=== PATIENT | male | born 1965 | race Caucasian/White ===

== ENCOUNTER 2017-04-27 09:56 | Day surgery (SDC) | payer OTHER, MEDICAID ==
[2017-04-27] MEDS ORDERED: D5 LR 1000 ML 1,000 ML IV ONE (10:04)
[2017-04-27] MEDS ORDERED: DIPRIVAN VIAL 20 ML ONE (11:37)
[2017-04-27 12:14] VITALS: BP 115/70
== END 2017-04-27 12:16 | disposition home or self-care (01) ==
LOC: SURG1 09:56
PROVIDERS: ATTEND Internal Medicine Gastroenterology
PROC: 0DB68ZX Excision of Stomach, Via Natural or Artificial Opening Endoscopic, Diagnostic (ICD-10-PCS; principal; 2017-04-27 12:45)
PROC: 0DJ08ZZ Inspection of Upper Intestinal Tract, Via Natural or Artificial Opening Endoscopic (ICD-10-PCS; principal; 2017-04-27 12:45)
PROC: 0DB88ZX Excision of Small Intestine, Via Natural or Artificial Opening Endoscopic, Diagnostic (ICD-10-PCS; principal; 2017-04-27 12:45)
DX: R10.13 Epigastric pain (principal); R11.0 Nausea; K21.9 Gastro-esophageal reflux disease without esophagitis; K29.60 Other gastritis without bleeding; K20.8 Other esophagitis
CPT/HCPCS: A4217; J3490; J7120

== ENCOUNTER 2017-12-21 11:02 | Day surgery (SDC) | payer OTHER, MEDICAID ==
[2017-12-21] MEDS ORDERED: D5 LR 1000 ML 1,000 ML IV ONE (11:15)
[2017-12-21] MEDS ORDERED: DIPRIVAN VIAL 20 ML ONE (12:34)
[2017-12-21 14:25] VITALS: BP 118/73
== END 2017-12-21 13:15 | disposition home or self-care (01) | DRG 395 ==
LOC: SURG1 11:02
PROVIDERS: ATTEND Internal Medicine Gastroenterology
PROC: 0DBP8ZX Excision of Rectum, Via Natural or Artificial Opening Endoscopic, Diagnostic (ICD-10-PCS; principal; 2017-12-21 14:30)
DX: K62.7 Radiation proctitis (principal); K64.0 First degree hemorrhoids; Z85.048 Personal history of other malignant neoplasm of rectum, rectosigmoid junction, and anus; Z92.3 Personal history of irradiation
CPT/HCPCS: A4217; J3490; J7120

== ENCOUNTER 2018-02-15 14:11 | Emergency (ER) | payer OTHER, MEDICAID ==
[2018-02-15 14:23] VITALS: BMI 19.8
--- NOTE | 2018-02-15 14:49 | DR.CP ---
HPI - Time Seen Time seen: 14:38 - PCP Primary Care Physician: RANDY MILTON - Complaint Chief Complaint Doctor Comments: Intermittent chest pain x 3 months. Current episode awakened him from sleep this a.m. HE describes this as a sharp/ stabbing pain without radiation. There is no associated dyspnea, nausea or vomitting. Chief Complaint:: PT C/O HAVING CHEST WALL PAIN , SPASMS AND HE FEELS LIKE HIS HEART IS RACING AND IT HAS BEEN GOING ON FOR 3 MONTHS AND HE TO FLU WITH BELLE, AND FEREE ON MONDAY , PT APPEARS TO BE PALE. Self Treatment fo Chief Complaint: NONE - Reviewed Nurses Notes Review: Yes - Source History Provided: Patient - Mode of Arrival Mode of Arrival: Ambulatory - Timing Onset of Chief Complaint: 12/14/17 - Location Chest Pain Radiation Location: Left Jaw - Associated Signs and Symptoms Associated Signs and Symptoms: None PMH - PMH Past Medical History: Yes Past Medical History: Anxiety, Diabetes, Dyslipidemia, Hypertension Past Medical History Comment: COLON CANCER, Past Surgical History: Yes Surgical History: Ortho Surgery Past Surgical History Comment: PLATE AND ADDIE IN BACK, - Family History History of Family Medical Conditions: Yes Family Medical History: Diabetes Mellitus, Cancer, [place], Hypertension - Social History Does patient currently use any type of tobacco product: No Have you used tobacco products in the last 12 months: No Type of Tobacco Use: None Does any household member use tobacco: No Alcohol Use: None Do you use any recreational Drugs:: No Lives With: Spouse Lives Where: Home - infectious screening In the last 2 months have you had wt loss of >10#?: NO Have you had fever, night sweats or hemotysis?: No Have you traveled outside the country in the last 6 months?: No Isolation: Standard ROS - Review of Systems Constitutional: No Symptoms Reported Eyes: No Symptoms Reported ENTM: No Symptoms Reported Respiratoy: No Symptoms Reported Cardiovascular: Chest Pain Gastrointestinal/Abdominal: No Symptoms Reported Genitourinary: No Symptoms Reported Neurological: No Symptoms Reported Musculoskeletal: No Symptoms Reported Integumentary: No Symptoms Reported Hematologic/Lymphatic: No Symptoms Reported Endocrine: No Symptoms Reported Psychiatric: No Symptoms Reported All Other Systems: Reviewed and Negative PE - Vitals Vitals: Temperature 96.6 F Pulse Rate [Left Brachial] 80 Pulse Rate 103 Respiratory Rate 18 Blood Pressure [Left Arm] 122/71 Blood Pressure 149/80 O2 Sat by Pulse Oximetry 100 - General Limitations: No Limitations General Appearance: Alert, In No Apparent Distress - Head Head Exam: Normal Inspection - Eyes Eye exam: Normal Appearance - ENT ENT Exam: Normal Exam - Chest Chest Inspection: Normal Inspection - Respiratory Respiratory Exam: Normal Lung Sounds Bilat - Cardiovascular Cardiovascular Exam: Regular Rate, Normal Rhythm, Normal Heart Sounds, +S1, +S2 - Abdominal Exam Abdominal Exam: Normal Inspection, Normal Bowel Sounds, Soft - Extremities Extremities Exam: Normal Inspection - Back Back Exam: Normal Inspection - Neurologic Neurological Exam: Alert, Oriented X3 - Psychiatric Psychiatric Exam: Normal Affect, Normal Mood - Skin Skin Exam: Warm, Dry, Intact, Normal Color Course - Reevaluation 1st: Improved 2nd: Improved ROR - Labs Reviewed Result Diagrams: 02/15/18 15:01 02/15/18 15:01 Laboratory: WBC 3.4 X10^3/uL (3.6-10.0) L 02/15/18 15:01 RBC 2.76 X10^6/uL (4.7-6.0) L 02/15/18 15:01 Hgb 11.8 g/dL (13.5-18.0) L 02/15/18 15:01 Hct 32.6 % (42.0-54.0) L 02/15/18 15:01 MCV 118.4 fL (80.0-100.0) H 02/15/18 15:01 MCH 42.9 pg (27.0-34.0) H 02/15/18 15:01 MCHC 36.2 g/dL (33.0-35.0) H 02/15/18 15:01 RDW 13.5 % (11.6-16.5) 02/15/18 15:01 Plt Count 176 X10^3/uL (150.0-450.0) 02/15/18 15:01 Plt Count Comment Adequate (ADEQUATE) 02/15/18 15:01 MPV 8.5 fL (7.4-11.0) 02/15/18 15:01 Neut % (Auto) 52.6 % (42.0-75.0) 02/15/18 15:01 Lymph % (Auto) 29.6 % (21.0-51.0) 02/15/18 15:01 Mclennan % (Auto) 14.5 % (0.0-13.0) H 02/15/18 15:01 Eos % (Auto) 2.8 % (0.9-2.9) 02/15/18 15:01 Baso % (Auto) 0.5 % (0.2-1.0) 02/15/18 15:01 Neut # (Auto) 1.8 x10^3/uL (2.2-4.8) L 02/15/18 15:01 Lymph # (Auto) 1.0 X10^3/uL (1.3-2.9) L 02/15/18 15:01 [place]clennan # (Auto) 0.5 x10^3/uL (0.3-0.8) 02/15/18 15:01 Eos # (Auto) 0.1 x10^3/uL (0.0-0.2) 02/15/18 15:01 Baso # (Auto) 0.0 X10^3/uL (0.0-0.1) 02/15/18 15:01 Absolute Nucleated RBC 0.1 /100WBC 02/15/18 15:01 Plt Morphology Comment Normal (NORMAL) 02/15/18 15:01 RBC Morphology Normal (NORMAL) 02/15/18 15:01 Macrocytosis 2+ A 02/15/18 15:01 INR Target Range - 02/15/18 15:01 INR 1.15 (0.8-1.3) 02/15/18 15:01 APTT 28.9 SECONDS (22.9-36.5) 02/15/18 15:01 PTT Comment - 02/15/18 15:01 Sodium 135 mmol/L (136-145) L 02/15/18 15:01 Corrected Sodium 139 mmol/L (136-145) 02/15/18 15:01 Potassium 3.9 mmol/L (3.5-5.1) 02/15/18 15:01 Chloride 99 mmol/L (98-107) 02/15/18 15:01 Carbon Dioxide 24.1 mmol/L (21-32) 02/15/18 15:01 BUN 17 mg/dL (7-18) 02/15/18 15:01 Creatinine 1.19 mg/dL (0.70-1.30) 02/15/18 15:01 Est GFR (MDRD) Af Amer > 60 (>60) 02/15/18 15:01 Est GFR (MDRD) Non-Af > 60 (>60) 02/15/18 15:01 Glucose 253 mg/dL (65-99) H 02/15/18 15:01 Calcium 8.0 mg/dL (8.5-10.1) L 02/15/18 15:01 Corrected Calcium TNP 02/15/18 15:01 Magnesium 1.9 mg/dL (1.7-2.9) 02/15/18 15:01 Total Bilirubin 0.40 mg/dL (0.2-1.0) 02/15/18 15:01 AST 40 Units/L (15-37) H 02/15/18 15:01 ALT 40 Units/L (12-78) 02/15/18 15:01 Alkaline Phosphatase 68 Units/L (46-116) 02/15/18 15:01 Creatine Kinase 684 Units/L (39-308) H 02/15/18 15:01 CK-MB (CK-2) 6.9 ng/mL (0-4.0) H* 02/15/18 15:01 CK/CKMB % Calc 1.0 % (<4) 02/15/18 15:01 Troponin I < 0.02 ng/mL (0-1.5) 02/15/18 15:01 Total Protein 7.9 g/dL (6.4-8.2) 02/15/18 15:01 Albumin 3.8 g/dL (3.4-5.0) 02/15/18 15:01 Globulin 4.1 g/dL (2.5-4.5) 02/15/18 15:01 Albumin/Globulin Ratio 0.9 Ratio (1.1-2.1) L 02/15/18 15:01 - XRAY XRAY Interpreted by: Self (CXR: Normal) - EKG Rate: 90 Bee: Normal Rhythm: NSR Block: None Hypertrophy: None ST: Normal - Diagnosis Discharge Problem: Chest pain, musculoskeletal - Discharge Plan Disposition: HOME, SELF-CARE Condition: Stable - Follow ups/Referrals Follow ups/Referrals: NFD,None [Primary Care Provider] - 3 days - Instructions Instructions: Nonspecific Chest Pain
[2018-02-15] MEDS ORDERED: ASPIRIN PO ONE (14:52)
[2018-02-15] MEDS ORDERED: NITROSTAT SL ONE (14:54)
[2018-02-15] MEDS: NITROSTAT SL PRN ×3 (15:04→15:33)
[2018-02-15 15:09] LABS: BASOPHILS % (AUTO) 0.5 % (0.2-1.0); EOSINOPHILS # (AUTO) 0.1 x10^3/uL (0.0-0.2); EOSINOPHILS % (AUTO) 2.8 % (0.9-2.9); HEMATOCRIT 32.6 % (42.0-54.0); HEMOGLOBIN 11.8 g/dL (13.5-18.0); LYMPHOCYTES % (AUTO) 29.6 % (21.0-51.0); MEAN CORPUSCULAR HEMOGLOBIN 42.9 pg (27.0-34.0); MEAN CORPUSCULAR HGB CONC 36.2 g/dL (33.0-35.0); MEAN CORPUSCULAR VOLUME 118.4 fL (80.0-100.0); MEAN PLATELET VOLUME 8.5 fL (7.4-11.0); MONOCYTES # (AUTO) 0.5 x10^3/uL (0.3-0.8); MONOCYTES % (AUTO) 14.5 % (0.0-13.0); NEUTROPHILS # (AUTO) 1.8 x10^3/uL (2.2-4.8); NEUTROPHILS % (AUTO) 52.6 % (42.0-75.0); PLATELET COUNT 176 X10^3/uL (150.0-450.0); RED BLOOD COUNT 2.76 X10^6/uL (4.7-6.0); RED CELL DISTRIBUTION WIDTH 13.5 % (11.6-16.5); WHITE BLOOD COUNT 3.4 X10^3/uL (3.6-10.0)
[2018-02-15 15:24] LABS: PLATELET MORPHOLOGY COMMENT NORMAL (NORMAL)
--- NOTE | 2018-02-15 15:52 | RAD ---
Chest, one view Indication: Chest pain Comparison: 01/28/2016 Findings: The heart is normal in size. No focal consolidation, significant effusion or pneumothorax i s identified. There is no acute osseous abnormality. Impression: No acute cardiopulmonary abnormality or significant change since prior. Reported By:
[2018-02-15 16:05] VITALS: BP 122/71
[2018-02-15 16:12] LABS: BLOOD UREA NITROGEN 17 mg/dL (7-18); CARBON DIOXIDE 24.1 mmol/L (21-32); CHLORIDE 99 mmol/L (98-107); COR NA(FOR HYPERGLY) 139 mmol/L (136-145); CREATININE 1.19 mg/dL (0.70-1.30); SODIUM 135 mmol/L (136-145); TROPONIN I < 0.02 ng/mL (0-1.5); eGFR BLACK RACES > 60 (>60); eGFR NON BLACK RACES > 60 (>60)
[2018-02-15 16:34] LABS: ALANINE AMINOTRANSFERASE 40 Units/L (12-78); ALBUMIN 3.8 g/dL (3.4-5.0); ALKALINE PHOSPHATASE 68 Units/L (46-116); ASPARTATE AMINO TRANSFERASE 40 Units/L (15-37); CREATINE KINASE 684 Units/L (39-308); MAGNESIUM 1.9 mg/dL (1.7-2.9); TOTAL PROTEIN 7.9 g/dL (6.4-8.2)
[2018-02-15 16:35] LABS: CREATINE KINASE MB 6.9 ng/mL (0-4.0)
[2018-02-15] MEDS ORDERED: TORADOL 60 MG VIAL IM ONE (17:18)
[2018-02-15] MEDS ORDERED: TORADOL 60 MG VIAL ONE (17:24)
== END 2018-02-15 17:37 | disposition home or self-care (01) ==
LOC: ER 14:27
DX: R07.89 Other chest pain (principal); M79.1 Myalgia; R73.9 Hyperglycemia, unspecified
CPT/HCPCS: 36415; 71045; 80053; 82550; 82553; 83735; 84484; 85025; 85610; 85730; 93005; 93010; 96372; 99283; 99284; A4222; J1885

== ENCOUNTER 2024-02-06 20:06 | Observation (INO) ==
--- NOTE | 2024-02-06 21:32 | DR.DIZZY ---
HPI Time seen Time Seen by Provider: 02/06/24 21:32 PCP Primary Care Physician: USMAN HPI Comment HPI Comment: 58 y/o on hiv + presents with multiple complaints including rectal bleeding for the past several days; he's had diarrhea for several weeks multiple times a day with occasional abdominal pain all of which seems to be worsening; his family member noticed that his stomach looks distended today as well; he's had no fever, chills, nausea or vomiting. He has cp with cough that he's had for a week or two as well; says he's fallen twice in the past week or so and broke ribs on the left side; since then, he started coughing; he has not seen a doctor for the diarrhea. Complaint Chief Complaint:: PT STATES HE FELL LAST MONDAY AND AGAIN ON MONDAY AND HIT HIS NECK WHERE HE HAS RODS AND PLATES PLACED AND NOW HAVING PAIN HE RATES AT A 10. STATES HE HAS NOT BEEN ABLE TO TAKE MEDS X1 WEEK DUE TO NOT FEELING GOOD AND HAVING DIARRHEA. STATES HE HAS SOB, COUGH. PT DOES REPORT HAVING TWO FX RIBS. COVID-19 Coronavirus risk:travel/contact w/high risk person: No Has patient experienced Coronavirus symptoms: No Source History Provided: Patient Mode of Arrival Mode of Arrival: Ambulatory Timing Onset of Chief Complaint: 01/30/24 Context Stroke Symptoms: None PMH PMH Past Medical History: Yes Past Medical History: Anxiety, Arthritis, Depression, Diabetes, GERD and Hypertension Past Surgical History: Yes Surgical History: Ortho Surgery and Other Family History History of Family Medical Conditions: Yes Family Medical History: Diabetes Mellitus, Cancer, [place] and Hypertension Social History Do you use any recreational Drugs:: No Travel Risk Coronavirus risk:travel/contact w/high risk person: No Has patient experienced Coronavirus symptoms: No Infectious screening Have you traveled outside the country in the last 6 months?: No Isolation: Standard ROS Review of Systems Eyes: No Symptoms Reported ENTM: No Symptoms Reported Respiratoy: No Symptoms Reported Cardiovascular: See HPI Gastrointestinal/Abdominal: See HPI Genitourinary: No Symptoms Reported Neurological: No Symptoms Reported Musculoskeletal: See HPI Integumentary: No Symptoms Reported Hematologic/Lymphatic: No Symptoms Reported Endocrine: No Symptoms Reported Psychiatric: No Symptoms Reported PE Vital Signs Vitals: Vital Signs Temperature 97.5 F Pulse Rate [Right] 91 Pulse Rate 98 Respiratory Rate 18 Respiratory Rate 20 Blood Pressure [Left Arm] 137/75 Blood Pressure 116/57 O2 Sat by Pulse Oximetry 97 O2 Sat by Pulse Oximetry 99 General Limitations: No Limitations General Appearance: Alert and In No Apparent Distress Head Head Exam: Normal Inspection Eyes Eye exam: Normal Appearance ENT ENT Exam: Normal Exam, Normal Oropharynx and Normal External Ear Exam Neck Neck Exam: Normal Inspection and Full ROM Chest Chest Inspection: Normal Inspection Respiratory Respiratory Exam: Normal Lung Sounds Bilat Cardiovascular Cardiovascular Exam: Regular Rate and Normal Rhythm Abdominal Exam Abdominal Exam: Distention and Dimnished Bowel Sounds Rectal Rectal Exam: Deferred Extremeties Extremities Exam: Normal Inspection and Full ROM Back Back Exam: Normal Inspection and Full ROM Neurologic Neurological Exam: Alert and Oriented X3 Psychiatric Psychiatric Exam: Normal Affect and Normal Mood Skin Skin Exam: Warm, Dry, Intact and Normal Color COURSE Critical Care Notes Total Time (mins): 30 Critical Diagnosis: rectal bleeding, anemia, pancreatitis, colitis, enteritis, hepatic steatosis Critical Interventions: labs, ct scan with analysis of results fluids, iv insulin, repeat sugars discussion of potential dx, results, requirement for admission w/pt and discussion of admission with Dr Cedeño ROR Labs Reviewed Laboratory Results Reviewed?: Yes 02/06/24 21:40 02/06/24 23:50 Laboratory: WBC 6.5 X10^3/uL (3.6-10.0) 02/06/24 21:40 RBC 2.89 X10^6/uL (4.7-6.0) L 02/06/24 21:40 Hgb 9.0 g/dL (13.5-18.0) L 02/06/24 21:40 Hct 27.8 % (42.0-54.0) L 02/06/24 21:40 MCV 96.1 fL (80.0-100.0) 02/06/24 21:40 MCH 31.1 pg (27.0-34.0) 02/06/24 21:40 MCHC 32.4 g/dL (33.0-35.0) L 02/06/24 21:40 RDW 16.5 % (11.6-16.5) 02/06/24 21:40 Plt Count 212 X10^3/uL (150.0-450.0) 02/06/24 21:40 MPV 9.2 fL (7.4-11.0) 02/06/24 21:40 Neut % (Auto) 83.6 % (42.0-75.0) H 02/06/24 21:40 Lymph % (Auto) 8.8 % (21.0-51.0) L 02/06/24 21:40 [place] % (Auto) 6.0 % (0.0-13.0) 02/06/24 21:40 Eos % (Auto) 1.0 % (0.9-2.9) 02/06/24 21:40 Baso % (Auto) 0.6 % (0.2-1.0) 02/06/24 21:40 Neut # (Auto) 5.5 x10^3/uL (2.2-4.8) H 02/06/24 21:40 Lymph # (Auto) 0.6 X10^3/uL (1.3-2.9) L 02/06/24 21:40 [place] # (Auto) 0.4 x10^3/uL (0.3-0.8) 02/06/24 21:40 Eos # (Auto) 0.1 x10^3/uL (0.0-0.2) 02/06/24 21:40 Baso # (Auto) 0.0 X10^3/uL (0.0-0.1) 02/06/24 21:40 Absolute Nucleated RBC 0.3 /100WBC 02/06/24 21:40 Sodium 132 mmol/L (136-145) L 02/06/24 21:40 Corrected Sodium 144 mmol/L (136-145) 02/06/24 21:40 Potassium 3.9 mmol/L (3.5-5.1) 02/06/24 21:40 Chloride 97 mmol/L (98-107) L 02/06/24 21:40 Carbon Dioxide 25.1 mmol/L (21-32) 02/06/24 21:40 BUN 24 mg/dL (7-18) H 02/06/24 21:40 Creatinine 1.47 mg/dL (0.70-1.30) H 02/06/24 21:40 Est GFR (MDRD) Af Amer > 60 (>60) 02/06/24 21:40 Est GFR (MDRD) Non-Af 52 (>60) L 02/06/24 21:40 Glucose 535 mg/dL (65-99) H* 02/06/24 23:50 POC Glucose (mg/dL) 514 mg/dL (65-99) H* 02/06/24 23:45 Calcium 9.0 mg/dL (8.5-10.1) 02/06/24 21:40 Corrected Calcium 10.8 mg/dL (8.5-10.1) H 02/06/24 21:40 Total Bilirubin 0.30 mg/dL (0.2-1.0) 02/06/24 21:40 AST 96 Units/L (15-37) H 02/06/24 21:40 ALT 18 Units/L (12-78) 02/06/24 21:40 Alkaline Phosphatase 81 Units/L (46-116) 02/06/24 21:40 Total Protein 7.6 g/dL (6.4-8.2) 02/06/24 21:40 Albumin 1.8 g/dL (3.4-5.0) L 02/06/24 21:40 Globulin 5.8 g/dL (2.5-4.5) H 02/06/24 21:40 Albumin/Globulin Ratio 0.3 Ratio (1.1-2.1) L 02/06/24 21:40 Lipase 59 Units/L (16-77) 02/06/24 21:40 Acetone, Semi-Quant Negative (NEGATIVE) 02/06/24 21:40 SARS-CoV-2 (PCR) Negative (NEGATIVE) 02/06/24 21:45 Influenza Type A (PCR) Negative (NEGATIVE) 02/06/24 21:45 Influenza Type B (PCR) Negative (NEGATIVE) 02/06/24 21:45 RSV (PCR) Negative (NEGATIVE) 02/06/24 21:45 XRAY XRAY Interpreted by: Radiologist X-ray Results: ct abd/pelvis w/o: 1. Evidence for acute pancreatitis marked by body and tail pancreatic enlargement and peripancreatic streaky inflammatory change interstitial fluid (extending throughout the posterior aspect of the lesser sac and along the left paracolic gutter and posterior peritoneal reflection to the superior pelvis. 2. No evidence for pancreatic pseudocyst formation is seen. 3. Circumferential thickening of the visualized distal esophagus (9.9 mm) which may represent postinflammatory change or reflux esophagitis in the appropriate clinical setting. 4. Circumferential thickening of the small bowel loops in the left abdomen in keeping with secondary enteritis. 5. Circumf erential thickening of the left-sided colonic bowel loops (distal transverse colon, splenic flexure, and descending colon) consistent with secondary colitis. 6. No evidence for bowel herniation, bowel obstruction, appendicitis or diverticulitis. 7. Status post partial bowel resection with reanastomosis in the anorectal region; no anastomotic dehiscence seen. 8. Dilated urinary bladder (10.2 cm CC by 7 cm AP by 9.1 cm transverse); rule out urinary retention. 9. Tiny bilateral nonobstructing renal calculi are noted; no ureteral stones or obstructive uropathy seen bilaterally. 10. Diffuse hepatic steatosis with hepatomegaly (right lobe measures 22.2 cm CC); rule out nonalcoholic steatosis hepatitis; no focal hepatic mass seen. 11. No free fluid, free air, mass lesions, or lymphadenopathy seen. chest ct w/o: No acute process in the chest. Suspected acute pancreatitis. Mild circumferential thickening of the distal esophagus. Inflammation or proliferative process could cause this appearance and follow-up upper endoscopy is suggested. Opioid Opioid Risk Tool Age (Jeevan box if 16-45): No History of Preadolescent Sexual Abuse: No Total: 0 Total Score Risk Category: Low Risk Copyright: Julio KLEIN predicting aberrant behaviors Discharge Plan Diagnosis Discharge Problem: Colitis with rectal bleeding, Anemia, Hyperglycemia due to type 2 diabetes mellitus, HIV disease, Bilateral kidney stones Acute pancreatitis Qualifiers: Pancreatitis type: idiopathic Acute pancreatitis complication: no infection or necrosis Qualified Code(s): K85.00 - Idiopathic acute pancreatitis without necrosis or infection Discharge Plan Patient Disposition: 09 ADMITTED INPATIENT Condition: Stable
[2024-02-06 22:08] LABS: BASOPHILS % (AUTO) 0.6 % (0.2-1.0); EOSINOPHILS # (AUTO) 0.1 x10^3/uL (0.0-0.2); HEMATOCRIT 27.8 % (42.0-54.0); LYMPHOCYTES # (AUTO) 0.6 X10^3/uL (1.3-2.9); LYMPHOCYTES % (AUTO) 8.8 % (21.0-51.0); MEAN CORPUSCULAR HEMOGLOBIN 31.1 pg (27.0-34.0); MEAN CORPUSCULAR HGB CONC 32.4 g/dL (33.0-35.0); MEAN CORPUSCULAR VOLUME 96.1 fL (80.0-100.0); MEAN PLATELET VOLUME 9.2 fL (7.4-11.0); MONOCYTES # (AUTO) 0.4 x10^3/uL (0.3-0.8); NEUTROPHILS # (AUTO) 5.5 x10^3/uL (2.2-4.8); NEUTROPHILS % (AUTO) 83.6 % (42.0-75.0); PLATELET COUNT 212 X10^3/uL (150.0-450.0); RED BLOOD COUNT 2.89 X10^6/uL (4.7-6.0); RED CELL DISTRIBUTION WIDTH 16.5 % (11.6-16.5); WHITE BLOOD COUNT 6.5 X10^3/uL (3.6-10.0)
[2024-02-06 22:18] LABS: ALANINE AMINOTRANSFERASE 18 Units/L (12-78); ALBUMIN 1.8 g/dL (3.4-5.0); ALKALINE PHOSPHATASE 81 Units/L (46-116); ASPARTATE AMINO TRANSFERASE 96 Units/L (15-37); BLOOD UREA NITROGEN 24 mg/dL (7-18); CARBON DIOXIDE 25.1 mmol/L (21-32); CHLORIDE 97 mmol/L (98-107); COR CA(FOR HYPOALB) 10.8 mg/dL (8.5-10.1); CREATININE 1.47 mg/dL (0.70-1.30); POTASSIUM 3.9 mmol/L (3.5-5.1); SODIUM 132 mmol/L (136-145); TOTAL PROTEIN 7.6 g/dL (6.4-8.2); eGFR NON BLACK RACES 52 (>60)
[2024-02-06 22:20] LABS: COR NA(FOR HYPERGLY) 144 mmol/L (136-145)
[2024-02-06 22:21] LABS: GLUCOSE 594 mg/dL (65-99)
[2024-02-06] MEDS: NS 1,000 ML IV 1,000 ML IV ONE ×2 (22:28→23:51)
[2024-02-06] MEDS: NovoLIN R (or HumuLIN R) SUBCUT ONE (22:32)
--- NOTE | 2024-02-06 22:36 | CT ---
EXAM:CHEST W/O CONHISTORY:cough, rib fracture, bloody diarrhea, weakness;COMPARISON:None availableTECHNIQUE:CT of the chest without contrastFINDINGS:Sensitivity is reduced without intravenous contrast. The thoracic aorta tapers normally. No pericardial effusion. Mild bilateral gynecomastia. There is mild circumferential thickening of the distal esophagus, incompletely evaluated.Limited visualization of the upper abdomen demonstrates an inflammatory process involving the body and tail of the pancreas, incompletely visible but concerning for acute pancreatitis. Food and fluid material are present is stomach.The lungs are clear and well inflated.No mediastinal lymphadenopathy.IMPRESSION:No acute process in the chest.Suspected acute pancreatitis.Mild circumferential thickening of the distal esophagus. Inflammation or proliferative process could cause this appearance and follow-up upper endoscopy is suggested.Dose reduction techniques including automated exposure control (AEC) and adjustment of mA and kv were utilized.THIS IS AN ELECTRONICALLY VERIFIED FINAL REPORT02/06/2024 10:31 PM - Electronically signed by Yann Cates MD
--- NOTE | 2024-02-06 22:36 | CT ---
EXAM: CT ABDOMEN AND PELVIS WITHOUT INTRAVENOUS CONTRASTHISTORY: Cough. Rib fracture. Bloody diarrhea. Weakness.TECHNIQUE: Spiral axial CT images are obtained through the abdomen and pelvis without the administration of intravenous contrast. Additional coronal and sagittal reformatted images are reconstructed.DOSIMETRY: Total DLP 358.34 mGycm; CTDI 6.72 mGyCOMPARISON: None available.FINDINGS:PANCREAS: There is evidence for acute pancreatitis marked by body and tail pancreatic enlargement and peripancreatic streaky inflammatory change interstitial fluid (extending throughout the posterior aspect of the lesser sac and along the left paracolic gutter and posterior peritoneal reflection to the superior pelvis. No evidence for pancreatic pseudocyst formation is seen.GASTROINTESTINAL TRACT: Circumferential thickening of the visualized distal esophagus (9.9 mm) which may represent postinflammatory change or reflux esophagitis in the appropriate clinical setting. There is circumferential thickening of the small bowel loops in the left abdomen in keeping with secondary enteritis. There is circumferential thickening of the left-sided colonic bowel loops (distal transverse colon, splenic flexure, and descending colon) consistent with secondary colitis. There is no evidence for bowel herniation, bowel obstruction, or diverticulitis. Status post partial bowel resection with reanastomosis in the anorectal region; no anastomotic dehiscence seen. A normal-appearing appendix is seen.GENITOURINARY SYSTEM: There are tiny bilateral nonobstructing renal calculi. The kidneys are otherwise unremarkable. There is no ureteral calculus or stigmata of obstructive uropathy. Dilated urinary bladder (10.2 cm CC by 7 cm AP by 9.1 cm transverse); rule out urinary retention.CT ABDOMEN: Diffuse hepatic steatosis with hepatomegaly (right lobe measures 22.2 cm CC); rule out nonalcoholic steatosis hepatitis; no focal hepatic mass seen. The spleen, adrenal glands, gallbladder, aorta, and inferior vena cava are within normal limits for a noncontrast CT scan. There is no intra-abdominal or retroperitoneal lymphadenopathy, free fluid, or free air seen. No abdominal herniation is noted.CT PELVIS: No pelvic sidewall or inguinal lymphadenopathy is seen. No inguinal herniation is noted. No free fluid or free air is seen.BONES AND JOINTS: The visualized bony structures are within normal limits.LUNG BASES: The lung bases are clear.IMPRESSION:1. Evidence for acute pancreatitis marked by body and tail pancreatic enlargement and peripancreatic streaky inflammatory change interstitial fluid (extending throughout the posterior aspect of the lesser sac and along the left paracolic gutter and posterior peritoneal reflection to the superior pelvis.2. No evidence for pancreatic pseudocyst formation is seen.3. Circumferential thickening of the visualized distal esophagus (9.9 mm) which may represent postinflammatory change or reflux esophagitis in the appropriate clinical setting.4. Circumferential thickening of the small bowel loops in the left abdomen in keeping with secondary enteritis.5. Circumferential thickening of the left-sided colonic bowel loops (distal transverse colon, splenic flexure, and descending colon) consistent with secondary colitis.6. No evidence for bowel herniation, bowel obstruction, appendicitis or diverticulitis.7. Status post partial bowel resection with reanastomosis in the anorectal region; no anastomotic dehiscence seen.8. Dilated urinary bladder (10.2 cm CC by 7 cm AP by 9.1 cm transverse); rule out urinary retention.9. Tiny bilateral nonobstructing renal calculi are noted; no ureteral stones or obstructive uropathy seen bilaterally.10. Diffuse hepatic steatosis with hepatomegaly (right lobe measures 22.2 cm CC); rule out nonalcoholic steatosis hepatitis; no focal hepatic mass seen.11. No free fluid, free air, mass lesions, or lymphadenopathy seen.THIS IS AN ELECTRONICALLY VERIFIED FINAL REPORT02/06/2024 10:32 PM - Electronically signed by Esdras Shirley
[2024-02-07] MEDS: NovoLIN R (or HumuLIN R) SUBCUT ONE (00:19)
[2024-02-07] MEDS ORDERED: ZOFRAN INJ 4 MG VIAL IVP PRN (00:52)
[2024-02-07] MEDS: NS 1,000 ML IV 1,000 ML IV SCH (01:10)
[2024-02-07] MEDS: NovoLIN R (or HumuLIN R) ONE ×2 (01:23)
[2024-02-07] MEDS: CONSULT PHARMACY - POTASSIUM & MAGNESIUM XX SCH (01:24)
[2024-02-07] MEDS: HumaLOG SC ONE (01:24)
[2024-02-07 02:28] VITALS: BMI 20.9
[2024-02-07 05:29] LABS: HEMATOCRIT 25.7 % (42.0-54.0); HEMOGLOBIN 8.7 g/dL (13.5-18.0); MEAN CORPUSCULAR HGB CONC 33.8 g/dL (33.0-35.0); RED BLOOD COUNT 2.74 X10^6/uL (4.7-6.0)
[2024-02-07 05:36] LABS: BASOPHILS % (AUTO) 0.3 % (0.2-1.0); EOSINOPHILS # (AUTO) 0.1 x10^3/uL (0.0-0.2); EOSINOPHILS % (AUTO) 1.4 % (0.9-2.9); LYMPHOCYTES # (AUTO) 0.7 X10^3/uL (1.3-2.9); LYMPHOCYTES % (AUTO) 11.8 % (21.0-51.0); MEAN CORPUSCULAR HEMOGLOBIN 31.8 pg (27.0-34.0); MONOCYTES # (AUTO) 0.4 x10^3/uL (0.3-0.8); MONOCYTES % (AUTO) 7.4 % (0.0-13.0); NEUTROPHILS # (AUTO) 4.4 x10^3/uL (2.2-4.8); NEUTROPHILS % (AUTO) 79.1 % (42.0-75.0); PLATELET COUNT 206 X10^3/uL (150.0-450.0); RED CELL DISTRIBUTION WIDTH 16.3 % (11.6-16.5); WHITE BLOOD COUNT 5.6 X10^3/uL (3.6-10.0)
[2024-02-07 05:43] LABS: ALANINE AMINOTRANSFERASE 34 Units/L (12-78); ALBUMIN 1.6 g/dL (3.4-5.0); ALKALINE PHOSPHATASE 73 Units/L (46-116); ASPARTATE AMINO TRANSFERASE 79 Units/L (15-37); BLOOD UREA NITROGEN 17 mg/dL (7-18); CALCIUM 8.7 mg/dL (8.5-10.1); CARBON DIOXIDE 23.3 mmol/L (21-32); CHLORIDE 106 mmol/L (98-107); COR CA(FOR HYPOALB) 10.6 mg/dL (8.5-10.1); COR NA(FOR HYPERGLY) 145 mmol/L (136-145); CREATININE 1.04 mg/dL (0.70-1.30); GLUCOSE 276 mg/dL (65-99); POTASSIUM 3.3 mmol/L (3.5-5.1); SODIUM 141 mmol/L (136-145); TOTAL PROTEIN 7.3 g/dL (6.4-8.2); eGFR NON BLACK RACES > 60 (>60)
[2024-02-07] MEDS ORDERED: CONSULT PHARMACY - POTASSIUM & MAGNESIUM XX SCH (07:00)
[2024-02-07] MEDS ORDERED: CIPRO IV 200 MG PREMIX* 200 MG/100 ML BAG IV SCH (09:00)
[2024-02-07] MEDS ORDERED: NovoLIN R (or HumuLIN R) SC PRN (09:40)
[2024-02-07] MEDS: FLAGYL IV PREMIX 500 MG BAG 500 MG/100 ML BAG IV SCH (09:51)
[2024-02-07] MEDS: PROTONIX INJ 40 MG VIAL IVP SCH (09:51)
[2024-02-07] MEDS: MAG-OX TAB PO SCH (09:52)
[2024-02-07] MEDS: K-DUR TAB 20 MEQ PO SCH (09:52)
--- NOTE | 2024-02-07 09:53 | DR.H&P ---
H&P History & Physical for Day of: H&P Date: 02/07/24 Chief Complaint Chief Complaint: rectal bleeding, fall Allergies Allergies Allergy/AdvReac Type Severity Reaction Status Date / Time codeine Allergy Verified 04/23/19 14:27 penicillin G Allergy Verified 04/23/19 14:27 Sulfa (Sulfonamide Allergy Verified 04/23/19 14:27 Antibiotics) [SULFA] History of Present Illness History of Present Illness: Mr Torre is a 58y/o male with a PMH of HIV, Type 2 DM, HTN, GERD, colon cancer and Parkinson's disease presented with bloody diarrhea, fall and cough. Patient states he had a fall at home few days ago and felt like his ribs broke. He did not go to the ER for evaluation. He has been having bloody diarrhea for 3-5 days. Denies N/V or abdominal pain. He does report poor appetite. Patient is a poor historian and not able to provide details about his medical history or current symptoms. In the ER, he was noted to have elevated glucose and creatinine and low Mag. CTAP showed acute pancreatitis, colitis/enteritis and esophageal thickening. CT-chest did not show any acute process. Patient was started on IVF, pain control and antibiotics. He reports having a BM in the ER which had some blood but has not had any since then. Denies abdominal pain. Patient was seen by surgery this morning. Labs/imaging reviewed -Hgb 8.7 K:3.3 Ma.9 AST: 79 Lipase: (-) BUN/Cr: 17/1.04 -CTAP and CT-chest reviewed Plan: Continue ICU monitoring, continue hydration and IV antibiotics. Will change to Cipro and Flagyl. Order stool studies. Follow surgery recommendations. Replace electrolytes as per protocol. Continue pain control prn. PT/OT as tolerated. Resume home medications, start Lantus 15 units and SSI. Monitor AM labs/imaging. Time spent for clinical assessment, reviewing labs/imaging, physical exam, decision making and documentation greater than 45 mins. Past Medical History Past Medical History: Anxiety, Arthritis, Depression, Diabetes, GERD and Hypertension Past Surgical History Surgical History: Ortho Surgery Family History Family Medical History: Diabetes Mellitus, Cancer, [place] and Hypertension Social History Does patient currently use any type of tobacco product: No Type of Tobacco Use: None Alcohol Use: None Drug Use: None Medications Home Medications: Home Medications Medication Instructions Recorded Confirmed Type atorvastatin 80 mg tablet 80 mg PO QDAY 02/07/24 02/07/24 History bictegravir 50 mg-emtricitabine 1 tab PO QDAY 02/07/24 02/07/24 History 200 mg-tenofovir alafenam 25 mg tablet (Biktarvy) carbidopa ER 25 mg-levodopa 100 mg 1 tab PO BID 02/07/24 02/07/24 History tablet,extended release cyproheptadine 4 mg tablet 4 mg PO TID 02/07/24 02/07/24 History diazepam 10 mg tablet 10 mg PO TID PRN 02/07/24 02/07/24 History dicyclomine 10 mg capsule 10 mg PO TID PRN 02/07/24 02/07/24 History duloxetine 60 mg capsule,delayed 60 mg PO QDAY 02/07/24 02/07/24 History release empagliflozin 25 mg tablet 25 mg PO QDAY 02/07/24 02/07/24 History (Jardiance) evolocumab 140 mg/mL subcutaneous 140 mg subcut Q2W 02/07/24 02/07/24 History pen injector (Salma Khannaick) insulin glargine 100 unit/mL (3 See Rx Instructions .Route .COMPLEX 02/07/24 02/07/24 History mL) subcutaneous pen (Lantus Solostar U-100 Insulin) insulin lispro 100 unit/mL 20 unit subcut QID 02/07/24 02/07/24 History subcutaneous pen (Humalog KwikPen (U-100) Insulin) pen needle, diabetic 32 gauge x 02/07/24 02/07/24 History 532" (BD Amaris 2nd Gen Pen Needle) ropinirole 0.25 mg tablet 0.25 mg PO QPM 02/07/24 02/07/24 History verapamil 120 mg tablet 120 mg PO BID 02/07/24 02/07/24 History Labs 02/07/24 04:20 02/07/24 04:20 Labs: Laboratory WBC 5.6 X10^3/uL (3.6-10.0) 02/07/24 04:20 RBC 2.74 X10^6/uL (4.7-6.0) L 02/07/24 04:20 Hgb 8.7 g/dL (13.5-18.0) L 02/07/24 04:20 Hct 25.7 % (42.0-54.0) L 02/07/24 04:20 MCV 94.0 fL (80.0-100.0) 02/07/24 04:20 MCH 31.8 pg (27.0-34.0) 02/07/24 04:20 MCHC 33.8 g/dL (33.0-35.0) 02/07/24 04:20 RDW 16.3 % (11.6-16.5) 02/07/24 04:20 Plt Count 206 X10^3/uL (150.0-450.0) 02/07/24 04:20 MPV 9.0 fL (7.4-11.0) 02/07/24 04:20 Neut % (Auto) 79.1 % (42.0-75.0) H 02/07/24 04:20 Lymph % (Auto) 11.8 % (21.0-51.0) L 02/07/24 04:20 [place] % (Auto) 7.4 % (0.0-13.0) 02/07/24 04:20 Eos % (Auto) 1.4 % (0.9-2.9) 02/07/24 04:20 Baso % (Auto) 0.3 % (0.2-1.0) 02/07/24 04:20 Neut # (Auto) 4.4 x10^3/uL (2.2-4.8) 02/07/24 04:20 Lymph # (Auto) 0.7 X10^3/uL (1.3-2.9) L 02/07/24 04:20 [place] # (Auto) 0.4 x10^3/uL (0.3-0.8) 02/07/24 04:20 Eos # (Auto) 0.1 x10^3/uL (0.0-0.2) 02/07/24 04:20 Baso # (Auto) 0.0 X10^3/uL (0.0-0.1) 02/07/24 04:20 Absolute Nucleated RBC 0.2 /100WBC 02/07/24 04:20 Sodium 141 mmol/L (136-145) 02/07/24 04:20 Corrected Sodium 145 mmol/L (136-145) 02/07/24 04:20 Potassium 3.3 mmol/L (3.5-5.1) L 02/07/24 04:20 Chloride 106 mmol/L (98-107) 02/07/24 04:20 Carbon Dioxide 23.3 mmol/L (21-32) 02/07/24 04:20 BUN 17 mg/dL (7-18) 02/07/24 04:20 Creatinine 1.04 mg/dL (0.70-1.30) 02/07/24 04:20 Est GFR (MDRD) Af Amer > 60 (>60) 02/07/24 04:20 Est GFR (MDRD) Non-Af > 60 (>60) 02/07/24 04:20 Glucose 276 mg/dL (65-99) H 02/07/24 04:20 POC Glucose (mg/dL) 216 mg/dL (65-99) H 02/07/24 07:21 Calcium 8.7 mg/dL (8.5-10.1) 02/07/24 04:20 Corrected Calcium 10.6 mg/dL (8.5-10.1) H 02/07/24 04:20 Magnesium 1.9 mg/dL (2.0-2.9) L 02/07/24 04:20 Total Bilirubin 0.30 mg/dL (0.2-1.0) 02/07/24 04:20 AST 79 Units/L (15-37) H 02/07/24 04:20 ALT 34 Units/L (12-78) 02/07/24 04:20 Alkaline Phosphatase 73 Units/L (46-116) 02/07/24 04:20 Total Protein 7.3 g/dL (6.4-8.2) 02/07/24 04:20 Albumin 1.6 g/dL (3.4-5.0) L 02/07/24 04:20 Globulin 5.7 g/dL (2.5-4.5) H 02/07/24 04:20 Albumin/Globulin Ratio 0.3 Ratio (1.1-2.1) L 02/07/24 04:20 Lipase 59 Units/L (16-77) 02/06/24 21:40 Acetone, Semi-Quant Negative (NEGATIVE) 02/06/24 21:40 SARS-CoV-2 (PCR) Negative (NEGATIVE) 02/06/24 21:45 Influenza Type A (PCR) Negative (NEGATIVE) 02/06/24 21:45 Influenza Type B (PCR) Negative (NEGATIVE) 02/06/24 21:45 RSV (PCR) Negative (NEGATIVE) 02/06/24 21:45 Review of Systems Constitutional: Weakness Eyes: No Symptoms Reported ENT: No Symptoms Reported Respiratory: Pleuritic Pain Cardiovascular: No Symptoms Reported Gastrointestinal: Diarrhea and Hematochezia Genitourinary: No Symptoms Reported Musculoskeletal: No Symptoms Reported Skin: Rash and Lesions Neurological: Weakness Physical Exam Vital Signs: Vital Signs Temperature 97.7 F Temperature 97.6 F Pulse Rate 93 Pulse Rate 96 Blood Pressure 134/67 Blood Pressure 153/87 O2 Sat by Pulse Oximetry 98 O2 Sat by Pulse Oximetry 100 Oriented: Normal Eyes: Normal Throat: Normal Respiratory: Diminished Throughout Cardiovascular: Normal Auscultation: Bowel Sounds: Normal Palpation: Normal Tenderness: Normal Skin: Decreased Turgur and Rash (small nodules/lesions noted on both knees, no redness or swelling ) Musculoskeletal: Leg Psychiatric: Normal Affect: Normal Speech Pattern: Clear and Appropriate Assessment/Plan (1) Acute pancreatitis: Qualifiers: Acute pancreatitis complication: no infection or necrosis Pancreatitis type: idiopathic Qualified Code(s): K85.00 - Idiopathic acute pancreatitis without necrosis or infection Status: Acute (2) Colitis with rectal bleeding: Status: Acute (3) Hyperglycemia: Status: Acute (4) Anemia: Qualifiers: Anemia type: unspecified type Qualified Code(s): D64.9 - Anemia, unspecified Status: Acute (5) Generalized weakness: Status: Acute (6) Dehydration: Status: Acute (7) Chronic pain syndrome: Status: Acute (8) History of colon cancer: Status: Acute Review H&P Reviewed: Yes Patient was examined?: Yes
[2024-02-07] MEDS: CIPRO IV 400 MG PREMIX* 400 MG/200 ML IV.SOLN. IV SCH (10:01)
[2024-02-07] MEDS: LANTUS SC SCH (10:50)
[2024-02-07] MEDS: SINEMET (PLAIN) 25/100 MG PO SCH (10:51)
[2024-02-07] MEDS: CALAN (PLAIN) 120 MG PO SCH (10:52)
[2024-02-07] MEDS: LIPITOR TAB 80 MG PO SCH (10:52)
[2024-02-07] MEDS: CYMBALTA PO SCH (10:53)
[2024-02-07] MEDS: NovoLIN R (or HumuLIN R) SUBCUT PRN (12:13)
[2024-02-07] MEDS: BICTEGRAV EMTRICIT TENOFOV ALA PO SCH (15:27)
[2024-02-07] MEDS: DUONEB 0.5 MG/3 MG (3 mL) NEB SCH ×2 (16:48→20:29)
[2024-02-07] MEDS: ZyrTEC TAB 10 MG PO SCH (17:20)
--- NOTE | 2024-02-07 17:37 | US ---
EXAM:GALL BLADDERHISTORY:pancreatitis; RECTAL BLEDING, ANEMIA, PANCREATITIS, COLITISCOMPARISON:None available.TECHNIQUE:Multiple ramirez scale and color flow Doppler images of the right upper quadrant were obtained.FINDINGS:The visualized liver exhibits mild increased echogenicity consistent with fatty infiltration.. The gallbladder is partially contracted. No gallstones are identified. The common bile duct measures within normal limits for age at 3.3 mm. No pericholecystic fluid or gallbladder wall thickening is seen. By report, Leija's sign is reportedly sonographically negative. The right kidney measures 11.5 x 5.7 x 7.1 cm. Pancreas is partially obscured. The IVC is patent.IMPRESSION:Partially contracted gallbladder; no evidence of cholelithiasis or biliary ductal dilatation.Mild hepatic steatosis.No convincing sonographic evidence for acute cholecystitis.THIS IS AN ELECTRONICALLY VERIFIED FINAL REPORT02/07/2024 5:34 PM - Electronically signed by Isidro Agustin MD
[2024-02-07] MEDS ORDERED: SNACK - Diabetic Appropriate PO SCH ×2 (20:00)
[2024-02-07] MEDS: SNACK - Diabetic Appropriate PO SCH (20:12)
[2024-02-07] MEDS: REQUIP PO SCH (20:14)
[2024-02-07] MEDS: TESSALON PERLES PO PRN (22:49)
[2024-02-08] MEDS: VALIUM PO PRN (01:29)
[2024-02-08] MEDS: ROBITUSSIN DM PO PRN (01:59)
[2024-02-08 05:31] LABS: BASOPHILS % (AUTO) 0.3 % (0.2-1.0); EOSINOPHILS % (AUTO) 0.5 % (0.9-2.9); HEMATOCRIT 25.1 % (42.0-54.0); HEMOGLOBIN 8.5 g/dL (13.5-18.0); LYMPHOCYTES # (AUTO) 0.9 X10^3/uL (1.3-2.9); LYMPHOCYTES % (AUTO) 12.9 % (21.0-51.0); MEAN CORPUSCULAR HEMOGLOBIN 31.8 pg (27.0-34.0); MEAN CORPUSCULAR HGB CONC 33.9 g/dL (33.0-35.0); MEAN CORPUSCULAR VOLUME 93.7 fL (80.0-100.0); MEAN PLATELET VOLUME 8.9 fL (7.4-11.0); MONOCYTES # (AUTO) 0.5 x10^3/uL (0.3-0.8); MONOCYTES % (AUTO) 6.6 % (0.0-13.0); NEUTROPHILS # (AUTO) 5.8 x10^3/uL (2.2-4.8); NEUTROPHILS % (AUTO) 79.7 % (42.0-75.0); PLATELET COUNT 201 X10^3/uL (150.0-450.0); RED BLOOD COUNT 2.68 X10^6/uL (4.7-6.0); RED CELL DISTRIBUTION WIDTH 16.2 % (11.6-16.5); WHITE BLOOD COUNT 7.3 X10^3/uL (3.6-10.0)
[2024-02-08 05:47] LABS: ALANINE AMINOTRANSFERASE 37 Units/L (12-78); ALBUMIN 1.5 g/dL (3.4-5.0); ALKALINE PHOSPHATASE 66 Units/L (46-116); ASPARTATE AMINO TRANSFERASE 90 Units/L (15-37); BLOOD UREA NITROGEN 8 mg/dL (7-18); CALCIUM 8.4 mg/dL (8.5-10.1); CARBON DIOXIDE 22.5 mmol/L (21-32); CHLORIDE 102 mmol/L (98-107); COR CA(FOR HYPOALB) 10.4 mg/dL (8.5-10.1); COR NA(FOR HYPERGLY) 137 mmol/L (136-145); GLUCOSE 195 mg/dL (65-99); MAGNESIUM 1.6 mg/dL (2.0-2.9); POTASSIUM 3.3 mmol/L (3.5-5.1); SODIUM 135 mmol/L (136-145); TOTAL PROTEIN 6.8 g/dL (6.4-8.2); eGFR NON BLACK RACES > 60 (>60)
[2024-02-08] MEDS ORDERED: CONSULT PHARMACY - POTASSIUM & MAGNESIUM XX SCH (07:00)
[2024-02-08] MEDS ORDERED: K-DUR TAB 20 MEQ PO SCH (09:00)
[2024-02-08] MEDS ORDERED: MAG-OX TAB PO SCH (09:00)
[2024-02-08] MEDS: NS + KCL 20 MEQ/L 1,000 ML with MAGNESIUM SULFATE 50% INJ VIAL 1 G IV SCH (10:08)
--- NOTE | 2024-02-08 11:06 | PCM.PROG ---
Progress Note Progress Note for Day of Date of Exam: 02/08/24 Subjective Subjective: Mr Torre is a 58y/o male with a PMH of HIV, Type 2 DM, HTN, GERD, colon cancer and Parkinson's disease admitted for colitis with rectal bleeding, pancreatitis, anemia, and dehydration. Patient is a poor historian and not able to provide details about his medical history or current symptoms except that his symptoms are the same. No acute events overnight. Labs/imaging reviewed -Wbc 7.3, Hgb 8.5, Plt 201, Na 135, K 3.3, Creatinine 0.70, Glucose 195 -Stool studies pending -CTAP and CT-chest reviewed Plan: Continue ICU monitoring, continue hydration and IV antibiotics Cipro and Flagyl. General surgery-Dr Estes following, plan for GI endoscopy in the morning. Will keep patient NPO. Replace electrolytes as per protocol. Continue pain control prn. PT/OT as tolerated. Home medications have been resumed. Otherwise, continue with current treatment plan. Continue to closely monitor and follow up labs/imaging. Time spent for clinical assessment, reviewing labs/imaging, physical exam, decision making and documentation greater than 45 mins. Past Medical Family Social History Allergies: Allergies codeine Allergy (Verified 04/23/19 14:27) penicillin G Allergy (Verified 04/23/19 14:27) Sulfa (Sulfonamide Antibiotics) [SULFA] Allergy (Verified 04/23/19 14:27) Review of Systems ROS changes noted: see HPI Vital Signs and I&O's Vital Signs: Vital Signs Temperature 98.2 F Temperature 99.0 F Pulse Rate 111 Pulse Rate 101 Respiratory Rate 18 Blood Pressure 147/71 Blood Pressure 157/82 O2 Sat by Pulse Oximetry 98 O2 Sat by Pulse Oximetry 95 Intake and Output: Intake & Output 02/05/24 02/06/24 02/07/24 02/08/24 23:59 23:59 23:59 23:59 Intake Total 2768 / 2768 980 / 980 Output Total 1500 / 1500 400 / 400 Balance 1268 / 1268 580 / 580 Physical Exam Oriented: Normal Eyes: Normal Throat: Normal Respiratory: Normal Cardiovascular: Normal Auscultation: Bowel Sounds: Normal Tenderness: Normal Skin: Decreased Turgur and Rash (small nodules/lesions noted on both knees, no redness or swelling ) Musculoskeletal: Leg Psychiatric: Normal Affect: Normal Speech Pattern: Clear and Appropriate Laboratory and Diagnostics 02/08/24 04:13 02/08/24 04:13 Labs: Laboratory WBC 7.3 X10^3/uL (3.6-10.0) 02/08/24 04:13 RBC 2.68 X10^6/uL (4.7-6.0) L 02/08/24 04:13 Hgb 8.5 g/dL (13.5-18.0) L 02/08/24 04:13 Hct 25.1 % (42.0-54.0) L 02/08/24 04:13 MCV 93.7 fL (80.0-100.0) 02/08/24 04:13 MCH 31.8 pg (27.0-34.0) 02/08/24 04:13 MCHC 33.9 g/dL (33.0-35.0) 02/08/24 04:13 RDW 16.2 % (11.6-16.5) 02/08/24 04:13 Plt Count 201 X10^3/uL (150.0-450.0) 02/08/24 04:13 MPV 8.9 fL (7.4-11.0) 02/08/24 04:13 Neut % (Auto) 79.7 % (42.0-75.0) H 02/08/24 04:13 Lymph % (Auto) 12.9 % (21.0-51.0) L 02/08/24 04:13 [place] % (Auto) 6.6 % (0.0-13.0) 02/08/24 04:13 Eos % (Auto) 0.5 % (0.9-2.9) L 02/08/24 04:13 Baso % (Auto) 0.3 % (0.2-1.0) 02/08/24 04:13 Neut # (Auto) 5.8 x10^3/uL (2.2-4.8) H 02/08/24 04:13 Lymph # (Auto) 0.9 X10^3/uL (1.3-2.9) L 02/08/24 04:13 [place] # (Auto) 0.5 x10^3/uL (0.3-0.8) 02/08/24 04:13 Eos # (Auto) 0.0 x10^3/uL (0.0-0.2) 02/08/24 04:13 Baso # (Auto) 0.0 X10^3/uL (0.0-0.1) 02/08/24 04:13 Absolute Nucleated RBC 0.1 /100WBC 02/08/24 04:13 Sodium 135 mmol/L (136-145) L 02/08/24 04:13 Corrected Sodium 137 mmol/L (136-145) 02/08/24 04:13 Potassium 3.3 mmol/L (3.5-5.1) L 02/08/24 04:13 Chloride 102 mmol/L (98-107) 02/08/24 04:13 Carbon Dioxide 22.5 mmol/L (21-32) 02/08/24 04:13 BUN 8 mg/dL (7-18) 02/08/24 04:13 Creatinine 0.70 mg/dL (0.70-1.30) 02/08/24 04:13 Est GFR (MDRD) Af Amer > 60 (>60) 02/08/24 04:13 Est GFR (MDRD) Non-Af > 60 (>60) 02/08/24 04:13 Glucose 195 mg/dL (65-99) H 02/08/24 04:13 POC Glucose (mg/dL) 313 mg/dL (65-99) H 02/08/24 08:48 Calcium 8.4 mg/dL (8.5-10.1) L 02/08/24 04:13 Corrected Calcium 10.4 mg/dL (8.5-10.1) H 02/08/24 04:13 Magnesium 1.6 mg/dL (2.0-2.9) L 02/08/24 04:13 Total Bilirubin 0.40 mg/dL (0.2-1.0) 02/08/24 04:13 AST 90 Units/L (15-37) H 02/08/24 04:13 ALT 37 Units/L (12-78) 02/08/24 04:13 Alkaline Phosphatase 66 Units/L (46-116) 02/08/24 04:13 Total Protein 6.8 g/dL (6.4-8.2) 02/08/24 04:13 Albumin 1.5 g/dL (3.4-5.0) L 02/08/24 04:13 Globulin 5.3 g/dL (2.5-4.5) H 02/08/24 04:13 Albumin/Globulin Ratio 0.3 Ratio (1.1-2.1) L 02/08/24 04:13 Lipase 59 Units/L (16-77) 02/06/24 21:40 Acetone, Semi-Quant Negative (NEGATIVE) 02/06/24 21:40 SARS-CoV-2 (PCR) Negative (NEGATIVE) 02/06/24 21:45 Influenza Type A (PCR) Negative (NEGATIVE) 02/06/24 21:45 Influenza Type B (PCR) Negative (NEGATIVE) 02/06/24 21:45 RSV (PCR) Negative (NEGATIVE) 02/06/24 21:45 Plan (1) Acute pancreatitis: Status: Acute Qualifiers: Acute pancreatitis complication: no infection or necrosis Pancreatitis type: idiopathic Qualified Code(s): K85.00 - Idiopathic acute pancreatitis without necrosis or infection (2) Colitis with rectal bleeding: Status: Acute (3) Hyperglycemia: Status: Acute (4) Anemia: Status: Acute Qualifiers: Anemia type: unspecified type Qualified Code(s): D64.9 - Anemia, unspecified (5) Generalized weakness: Status: Acute (6) Dehydration: Status: Acute (7) Chronic pain syndrome: Status: Acute (8) History of colon cancer: Status: Acute
[2024-02-08] MEDS: SUPREP BOWEL PREP KIT PO SCH (14:17)
[2024-02-08] MEDS: BUTT CREAM (COMPOUND) TOP PRN (20:28)
[2024-02-09 05:06] LABS: MEAN PLATELET VOLUME 8.6 fL (7.4-11.0)
[2024-02-09 05:09] LABS: BASOPHILS % (AUTO) 0.1 % (0.2-1.0); EOSINOPHILS # (AUTO) 0.1 x10^3/uL (0.0-0.2); EOSINOPHILS % (AUTO) 0.9 % (0.9-2.9); HEMATOCRIT 25.3 % (42.0-54.0); HEMOGLOBIN 8.7 g/dL (13.5-18.0); LYMPHOCYTES # (AUTO) 0.9 X10^3/uL (1.3-2.9); LYMPHOCYTES % (AUTO) 12.9 % (21.0-51.0); MEAN CORPUSCULAR HEMOGLOBIN 31.8 pg (27.0-34.0); MEAN CORPUSCULAR HGB CONC 34.3 g/dL (33.0-35.0); MEAN CORPUSCULAR VOLUME 92.7 fL (80.0-100.0); MONOCYTES # (AUTO) 0.5 x10^3/uL (0.3-0.8); MONOCYTES % (AUTO) 7.3 % (0.0-13.0); NEUTROPHILS # (AUTO) 5.3 x10^3/uL (2.2-4.8); NEUTROPHILS % (AUTO) 78.8 % (42.0-75.0); PLATELET COUNT 229 X10^3/uL (150.0-450.0); RED BLOOD COUNT 2.73 X10^6/uL (4.7-6.0); RED CELL DISTRIBUTION WIDTH 16.2 % (11.6-16.5); WHITE BLOOD COUNT 6.8 X10^3/uL (3.6-10.0)
[2024-02-09 05:22] LABS: ALANINE AMINOTRANSFERASE 17 Units/L (12-78); ALBUMIN 1.6 g/dL (3.4-5.0); ALKALINE PHOSPHATASE 61 Units/L (46-116); ASPARTATE AMINO TRANSFERASE 59 Units/L (15-37); BLOOD UREA NITROGEN 9 mg/dL (7-18); CALCIUM 8.7 mg/dL (8.5-10.1); CARBON DIOXIDE 24.3 mmol/L (21-32); CHLORIDE 106 mmol/L (98-107); COR CA(FOR HYPOALB) 10.6 mg/dL (8.5-10.1); COR NA(FOR HYPERGLY) 142 mmol/L (136-145); CREATININE 0.77 mg/dL (0.70-1.30); GLUCOSE 184 mg/dL (65-99); POTASSIUM 3.4 mmol/L (3.5-5.1); SODIUM 140 mmol/L (136-145); eGFR NON BLACK RACES > 60 (>60)
[2024-02-09] MEDS ORDERED: CONSULT PHARMACY - POTASSIUM & MAGNESIUM XX SCH (07:00)
[2024-02-09] MEDS: DIPRIVAN VIAL 20 ML ONE (07:56)
[2024-02-09] MEDS: XYLOCAINE 2 % (PLAIN) ONE (07:56)
[2024-02-09] MEDS: NS 500 ML IV 500 ML IV ONE (07:57)
[2024-02-09] MEDS: MAG-OX TAB PO SCH (09:14)
[2024-02-09] MEDS: K-DUR TAB 20 MEQ PO SCH (09:14)
--- NOTE | 2024-02-09 09:19 | PCM.PROG ---
Progress Note Progress Note for Day of Date of Exam: 02/09/24 Subjective Subjective: Mr Torre is a 58y/o male with a PMH of HIV, Type 2 DM, HTN, GERD, colon cancer and Parkinson's disease admitted for colitis with rectal bleeding, pancreatitis, anemia, and dehydration. Patient reports some improvement in symptoms. No acute events overnight. He is scheduled for EGD and colonoscopy this morning. Labs/imaging reviewed -Wbc 6.8, Hgb 8.7, Plt 229, Na 140, K 3.4, Creatinine 0.77, Glucose 184 -Stool studies +wbc, blood, negative C Diff -CTAP and CT-chest reviewed Plan: Continue ICU monitoring, continue hydration and IV antibiotics Cipro and Flagyl. General surgery-Dr Estes following, plan for GI endoscopy this morning. Will keep patient NPO. Replace electrolytes as per protocol. Continue pain control prn. PT/OT as tolerated. Home medications have been resumed. Otherwise, continue with current treatment plan. Continue to closely monitor and follow up labs/imaging. Time spent for clinical assessment, reviewing labs/imaging, physical exam, decision making and documentation greater than 45 mins. Past Medical Family Social History Allergies: Allergies codeine Allergy (Verified 04/23/19 14:27) penicillin G Allergy (Verified 04/23/19 14:27) Sulfa (Sulfonamide Antibiotics) [SULFA] Allergy (Verified 04/23/19 14:27) Review of Systems ROS changes noted: see HPI Vital Signs and I&O's Vital Signs: Vital Signs Temperature 98.2 F Temperature 98.2 F Pulse Rate 95 Pulse Rate 101 Respiratory Rate 18 Blood Pressure 141/77 O2 Sat by Pulse Oximetry 98 O2 Sat by Pulse Oximetry 99 Intake and Output: Intake & Output 02/06/24 02/07/24 02/08/24 02/09/24 23:59 23:59 23:59 23:59 Intake Total 2768 / 2768 4430 / 4430 725 / 725 Output Total 1500 / 1500 1300 / 1300 500 / 500 Balance 1268 / 1268 3130 / 3130 225 / 225 Physical Exam Oriented: Normal Eyes: Normal Throat: Normal Respiratory: Normal Cardiovascular: Normal Auscultation: Bowel Sounds: Normal Palpation: Normal Tenderness: Normal Skin: Normal Musculoskeletal: Leg Psychiatric: Normal Affect: Normal Speech Pattern: Clear and Appropriate Laboratory and Diagnostics 02/09/24 04:17 02/09/24 04:17 Labs: 02/08/24 09:27 Stool - Final Laboratory WBC 6.8 X10^3/uL (3.6-10.0) 02/09/24 04:17 RBC 2.73 X10^6/uL (4.7-6.0) L 02/09/24 04:17 Hgb 8.7 g/dL (13.5-18.0) L 02/09/24 04:17 Hct 25.3 % (42.0-54.0) L 02/09/24 04:17 MCV 92.7 fL (80.0-100.0) 02/09/24 04:17 MCH 31.8 pg (27.0-34.0) 02/09/24 04:17 MCHC 34.3 g/dL (33.0-35.0) 02/09/24 04:17 RDW 16.2 % (11.6-16.5) 02/09/24 04:17 Plt Count 229 X10^3/uL (150.0-450.0) 02/09/24 04:17 MPV 8.6 fL (7.4-11.0) 02/09/24 04:17 Neut % (Auto) 78.8 % (42.0-75.0) H 02/09/24 04:17 Lymph % (Auto) 12.9 % (21.0-51.0) L 02/09/24 04:17 [place] % (Auto) 7.3 % (0.0-13.0) 02/09/24 04:17 Eos % (Auto) 0.9 % (0.9-2.9) 02/09/24 04:17 Baso % (Auto) 0.1 % (0.2-1.0) L 02/09/24 04:17 Neut # (Auto) 5.3 x10^3/uL (2.2-4.8) H 02/09/24 04:17 Lymph # (Auto) 0.9 X10^3/uL (1.3-2.9) L 02/09/24 04:17 [place] # (Auto) 0.5 x10^3/uL (0.3-0.8) 02/09/24 04:17 Eos # (Auto) 0.1 x10^3/uL (0.0-0.2) 02/09/24 04:17 Baso # (Auto) 0.0 X10^3/uL (0.0-0.1) 02/09/24 04:17 Absolute Nucleated RBC 0.0 /100WBC 02/09/24 04:17 Sodium 140 mmol/L (136-145) 02/09/24 04:17 Corrected Sodium 142 mmol/L (136-145) 02/09/24 04:17 Potassium 3.4 mmol/L (3.5-5.1) L 02/09/24 04:17 Chloride 106 mmol/L (98-107) 02/09/24 04:17 Carbon Dioxide 24.3 mmol/L (21-32) 02/09/24 04:17 BUN 9 mg/dL (7-18) 02/09/24 04:17 Creatinine 0.77 mg/dL (0.70-1.30) 02/09/24 04:17 Est GFR (MDRD) Af Amer > 60 (>60) 02/09/24 04:17 Est GFR (MDRD) Non-Af > 60 (>60) 02/09/24 04:17 Glucose 184 mg/dL (65-99) H 02/09/24 04:17 POC Glucose (mg/dL) 186 mg/dL (65-99) H 02/09/24 05:04 Calcium 8.7 mg/dL (8.5-10.1) 02/09/24 04:17 Corrected Calcium 10.6 mg/dL (8.5-10.1) H 02/09/24 04:17 Magnesium 1.9 mg/dL (2.0-2.9) L 02/09/24 04:17 Total Bilirubin 0.20 mg/dL (0.2-1.0) 02/09/24 04:17 AST 59 Units/L (15-37) H 02/09/24 04:17 ALT 17 Units/L (12-78) 02/09/24 04:17 Alkaline Phosphatase 61 Units/L (46-116) 02/09/24 04:17 Total Protein 7.0 g/dL (6.4-8.2) 02/09/24 04:17 Albumin 1.6 g/dL (3.4-5.0) L 02/09/24 04:17 Globulin 5.4 g/dL (2.5-4.5) H 02/09/24 04:17 Albumin/Globulin Ratio 0.3 Ratio (1.1-2.1) L 02/09/24 04:17 Lipase 59 Units/L (16-77) 02/06/24 21:40 Stl Occult Blood (IFOB) Positive (NEGATIVE) A 02/08/24 09:27 Stool for White Cells Positive (NEGATIVE) A 02/08/24 09:27 Stl C. diff Tox B Gene Negative (NEGATIVE) 02/08/24 09:27 Stl C. diff [id number] Presumptive negative (NEGATIVE) 02/08/24 09:27 Acetone, Semi-Quant Negative (NEGATIVE) 02/06/24 21:40 SARS-CoV-2 (PCR) Negative (NEGATIVE) 02/06/24 21:45 Influenza Type A (PCR) Negative (NEGATIVE) 02/06/24 21:45 Influenza Type B (PCR) Negative (NEGATIVE) 02/06/24 21:45 RSV (PCR) Negative (NEGATIVE) 02/06/24 21:45 Plan (1) Acute pancreatitis: Status: Acute Qualifiers: Acute pancreatitis complication: no infection or necrosis Pancreatitis type: idiopathic Qualified Code(s): K85.00 - Idiopathic acute pancreatitis without necrosis or infection (2) Colitis with rectal bleeding: Status: Acute (3) Hyperglycemia: Status: Acute (4) Anemia: Status: Acute Qualifiers: Anemia type: unspecified type Qualified Code(s): D64.9 - Anemia, unspecified (5) Generalized weakness: Status: Acute (6) Dehydration: Status: Acute (7) Chronic pain syndrome: Status: Acute (8) History of colon cancer: Status: Acute
[2024-02-09] MEDS ORDERED: MAGNESIUM SULFATE 50% INJ VIAL ONE (16:05)
[2024-02-09] MEDS ORDERED: NS + KCL 20 MEQ/L 1,000 ML IV ONE (16:06)
[2024-02-09 17:10] VITALS: RESP 20
[2024-02-09] MEDS ORDERED: NS 250 ML IV 25 ML IV PRN (18:59)
[2024-02-10 05:13] LABS: BASOPHILS % (AUTO) 0.2 % (0.2-1.0); EOSINOPHILS % (AUTO) 0.7 % (0.9-2.9); HEMATOCRIT 30.5 % (42.0-54.0); HEMOGLOBIN 10.1 g/dL (13.5-18.0); LYMPHOCYTES # (AUTO) 0.7 X10^3/uL (1.3-2.9); MEAN CORPUSCULAR HEMOGLOBIN 31.1 pg (27.0-34.0); MEAN CORPUSCULAR HGB CONC 33.3 g/dL (33.0-35.0); MEAN CORPUSCULAR VOLUME 93.4 fL (80.0-100.0); MEAN PLATELET VOLUME 8.5 fL (7.4-11.0); MONOCYTES # (AUTO) 0.4 x10^3/uL (0.3-0.8); MONOCYTES % (AUTO) 5.9 % (0.0-13.0); NEUTROPHILS % (AUTO) 83.2 % (42.0-75.0); PLATELET COUNT 330 X10^3/uL (150.0-450.0); RED BLOOD COUNT 3.26 X10^6/uL (4.7-6.0); RED CELL DISTRIBUTION WIDTH 16.4 % (11.6-16.5); WHITE BLOOD COUNT 7.2 X10^3/uL (3.6-10.0)
[2024-02-10 05:29] LABS: ALANINE AMINOTRANSFERASE 17 Units/L (12-78); ALKALINE PHOSPHATASE 73 Units/L (46-116); ASPARTATE AMINO TRANSFERASE 63 Units/L (15-37); BLOOD UREA NITROGEN 9 mg/dL (7-18); CALCIUM 9.2 mg/dL (8.5-10.1); CARBON DIOXIDE 26.8 mmol/L (21-32); CHLORIDE 103 mmol/L (98-107); COR CA(FOR HYPOALB) 10.8 mg/dL (8.5-10.1); COR NA(FOR HYPERGLY) 140 mmol/L (136-145); GLUCOSE 164 mg/dL (65-99); MAGNESIUM 2.2 mg/dL (2.0-2.9); POTASSIUM 3.8 mmol/L (3.5-5.1); SODIUM 138 mmol/L (136-145); TOTAL PROTEIN 8.1 g/dL (6.4-8.2); eGFR NON BLACK RACES > 60 (>60)
[2024-02-10] MEDS ORDERED: CONSULT PHARMACY - POTASSIUM & MAGNESIUM XX SCH (06:00)
[2024-02-10] MEDS ORDERED: K-DUR TAB 20 MEQ PO SCH (09:00)
[2024-02-10] MEDS: DIFLUCAN PO SCH (15:50)
[2024-02-11 05:18] LABS: BASOPHILS % (AUTO) 0.4 % (0.2-1.0); EOSINOPHILS # (AUTO) 0.1 x10^3/uL (0.0-0.2); EOSINOPHILS % (AUTO) 1.1 % (0.9-2.9); HEMATOCRIT 25.9 % (42.0-54.0); HEMOGLOBIN 8.8 g/dL (13.5-18.0); LYMPHOCYTES % (AUTO) 16.5 % (21.0-51.0); MEAN CORPUSCULAR HEMOGLOBIN 31.4 pg (27.0-34.0); MEAN CORPUSCULAR HGB CONC 33.8 g/dL (33.0-35.0); MEAN CORPUSCULAR VOLUME 92.8 fL (80.0-100.0); MEAN PLATELET VOLUME 8.3 fL (7.4-11.0); MONOCYTES # (AUTO) 0.4 x10^3/uL (0.3-0.8); MONOCYTES % (AUTO) 7.1 % (0.0-13.0); NEUTROPHILS # (AUTO) 4.7 x10^3/uL (2.2-4.8); NEUTROPHILS % (AUTO) 74.9 % (42.0-75.0); PLATELET COUNT 276 X10^3/uL (150.0-450.0); RED CELL DISTRIBUTION WIDTH 15.8 % (11.6-16.5); WHITE BLOOD COUNT 6.2 X10^3/uL (3.6-10.0)
[2024-02-11 05:28] LABS: ALANINE AMINOTRANSFERASE 13 Units/L (12-78); ALBUMIN 1.7 g/dL (3.4-5.0); ALKALINE PHOSPHATASE 62 Units/L (46-116); ASPARTATE AMINO TRANSFERASE 45 Units/L (15-37); BLOOD UREA NITROGEN 9 mg/dL (7-18); CALCIUM 8.5 mg/dL (8.5-10.1); CARBON DIOXIDE 26.7 mmol/L (21-32); CHLORIDE 105 mmol/L (98-107); COR CA(FOR HYPOALB) 10.3 mg/dL (8.5-10.1); COR NA(FOR HYPERGLY) 141 mmol/L (136-145); CREATININE 0.83 mg/dL (0.70-1.30); GLUCOSE 161 mg/dL (65-99); POTASSIUM 3.5 mmol/L (3.5-5.1); SODIUM 140 mmol/L (136-145); TOTAL PROTEIN 6.8 g/dL (6.4-8.2); eGFR NON BLACK RACES > 60 (>60)
[2024-02-11] MEDS ORDERED: CONSULT PHARMACY - POTASSIUM & MAGNESIUM XX SCH ×2 (06:00)
[2024-02-11 07:03] VITALS: O2SAT 98
[2024-02-11] MEDS: K-DUR TAB 20 MEQ PO SCH (09:33)
[2024-02-11 10:28] VITALS: BP 138/79; PULSE 111; TEMP 98.2
== END 2024-02-11 11:30 | disposition home or self-care (01) ==
LOC: ER 20:06 → ICU 02-07 00:52 → INTOOBSV 02-07 00:52 → ICU 02-07 01:45 → MED/SURG 02-09 15:32
PROVIDERS: ADMIT Internal Medicine; ATTEND Internal Medicine
DX: K29.60 Other gastritis without bleeding; Z20.822 Contact with and (suspected) exposure to COVID-19; K76.0 Fatty (change of) liver, not elsewhere classified; E11.65 Type 2 diabetes mellitus with hyperglycemia; G20.A1 Parkinson's disease without dyskinesia, without mention of fluctuations; E86.0 Dehydration; Z85.038 Personal history of other malignant neoplasm of large intestine; B20 Human immunodeficiency virus [HIV] disease; I10 Essential (primary) hypertension; E87.1 Hypo-osmolality and hyponatremia; D64.89 Other specified anemias; R26.89 Other abnormalities of gait and mobility; K29.80 Duodenitis without bleeding; Z91.81 History of falling; K52.89 Other specified noninfective gastroenteritis and colitis; K62.5 Hemorrhage of anus and rectum; R06.02 Shortness of breath; K21.9 Gastro-esophageal reflux disease without esophagitis; K85.00 Idiopathic acute pancreatitis without necrosis or infection; R19.7 Diarrhea, unspecified; E83.42 Hypomagnesemia; R07.89 Other chest pain